=== PATIENT | male | born 1975 | race Caucasian/White ===

== ENCOUNTER 2023-04-22 08:29 | Outpatient (AMB) | payer OTHER, SELFPAY ==
--- NOTE | 2023-04-22 08:48 | AM.OFFWIN_ITS ---
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) Intake Note: pt is here for c/o right leg swelling, 4x days, denies injury states he was hunting and jumped over a log but unsure if its related Patient Tobacco Use Status: Never used Tobacco Allergies No Known Allergies Allergy (Verified 04/22/23 08:48) Do you need a note to return to daycare/school/sports/work: Yes HPI HPI Comments History of Present Illness Details 0949 This is a 48-year-old male without significant medical history presenting to the clinic for sick visit complaining of right foot pain primarily in the ball of foot, patient reports that this pain is been going on for about a week, unsure how it started he feels as though maybe it started after he jumped off of a log and or was chasing his son. He reports the ball of his right foot is more swollen than usual. Denies a/c leg swelling, numbness, tingling, fevers, chills. Has taken ibuprofen with little to no relief Physical exam discomfort with palpation of ball of right foot with some overlying swelling. No overlying skin changes. Capillary refill less than 2 seconds to bilateral lower extremity digits. No foot drop. Normal sensation distally. Able to ambulate however ambulating with a limp favoring his left foot. Concerns for inflammatory arthritis versus contusion versus fracture versus dislocation. No signs of neurovascular compromise, threat to Lujan. Other differentials include plantar facititis, sprain or strian Plan imaging will discharge with prednisone and naproxen. Will also give orthopedic consult. Educated patient on diagnosis and treatment plan, answered all question, patient verbalizes understanding. At this time patient will be discharged home, advised to return with new or worsening symptoms. Educated on worrisome signs and symptoms and when to return. At this time I feel comfortable discharge home. [facility] Social History Patient Tobacco Use Status: Never used Tobacco Review of Systems Const Details: Constitutional : No Weight loss, No Fever, No Chills, No Fatigue, No Malaise ENT/Mouth : No sore throat, No Rhinorrhea Eyes: No Eye Pain, No Swelling, No Redness Cardiovascular : No Chest Pain, No SOB, No Dyspnea on Exertion, No Orthopnea, No Edema, No Palpitations Respiratory : No Cough, No Sputum, No Wheezing Gastrointestinal : No Nausea, No Vomiting, No Diarrhea, No Constipation, No abdominal Pain, No Hematochezia, No Melena Genitourinary : No Dysuria, No Urinary Frequency, No Hematuria, Musculoskeletal : + joint pain, No Myalgias, + Joint Swelling Skin : No Skin Lesions, No rash Neuro : No Weakness, No Numbness, No Dizziness, No Headache Psych : No Anxiety/Panic, No Depression All other systems reviewed and are negative All systems reviewed & are unremarkable except as noted in HPI and below Physical Exam Vital Signs: Last Vital Signs Temp 98.1 F 04/22/23 08:55 Pulse 86 04/22/23 08:55 BP 130/88 04/22/23 08:55 Pulse Ox 99 04/22/23 08:55 BMI result Body Mass Index 31.2 vss Appearance: Alert.? Oriented X3.? No acute distress.? Head: Normocephalic, atraumatic, no step-offs or deformities Eyes: Pupils equal, round and reactive to light.? CVS: Normal heart rate and rhythm.? Pulses normal.? Respiratory: No respiratory distress.? Breath sounds normal.? Abdomen: Soft and nontender.? Skin: Skin warm and dry.? Normal skin color.? Normal skin turgor.? Extremities: No lower extremity edema.? No calf ttp. 5/5 strength to bilateral upper and lower extremities discomfort with palpation of ball of right foot with some overlying swelling. No overlying skin changes. Capillary refill less than 2 seconds to bilateral lower extremity digits. No foot drop. Normal sensation distally. Able to ambulate however ambulating with a limp favoring his left foot. Back: No midline tenderness, no C-spine tenderness, full range of motion, no CVA tenderness bilaterally Neuro: Oriented X 3.? No motor deficit.? No sensory deficit. CN 2-12 intact Assessment & Plan Assessment & Plan (1) Right foot pain: Code(s): M79.671 - Pain in right foot Plan Take your medications as prescribed. If you were prescribed antibiotics today, it is important that you take your medication to their entirety, do not skip any doses, do not finish them early. Follow-up with your primary care provider this week. Return to the emergency department with new or worsening symptoms. Such as fevers, chills, chest pain, shortness of breath, nausea, vomiting, dizziness, headache, vision changes, lethargy In case of emergency call 911 Orders: Orders XR foot RT min 3V Today M79.671 - Pain in right foot Referrals Orthopedics Referral M79.671 - Pain in right foot Medications: New prednisone 20 mg PO DAILY 5 tabs 0RF 5 days naproxen 500 mg PO BID PRN 14 tabs 0RF pain Coding Level of Care Code Est Pt Level 3 (49935) Diagnoses Right foot pain M79.671
[2023-04-22 08:55] VITALS: BP 130/88; PULSE 86; TEMP 36.7; O2SAT 99; BMI 31.2
== END 2023-04-22 10:04 | disposition home or self-care (01) ==
PROVIDERS: Visit Provider Physician Assistant
DX: M79.671 Pain in right foot (principal)
CPT/HCPCS: 99213

== ENCOUNTER 2023-04-22 09:30 | Outpatient (REF) | payer OTHER, SELFPAY ==
--- NOTE | ~2023-04-22 | XR_ITS ---
EXAMINATION: XR FOOT, RIGHT CLINICAL INFORMATION: Pain right foot COMPARISON: None available. TECHNIQUE: AP, lateral, and oblique views of the right foot. FINDINGS: There is mild hallux valgus deformity first MTP joint. Mild subchondral cystic changes are seen along the distal lateral first metatarsal. The soft tissues are normal. The ankle mortise and subtalar joints are normal. A small calcaneal heel and retrocalcaneal enthesophytes are seen. XR/XR foot RT min 3V IMPRESSION: 1. Small calcaneal heel and retrocalcaneal enthesophytes. 2. Mild hallux valgus deformity first MTP joint with subchondral cystic changes along the distal first metatarsal. 3. No visible acute fracture, dislocation or subluxation seen.
== END 2023-04-22 09:31 | disposition home or self-care (01) ==
LOC: HO.HMGCX 09:30
PROVIDERS: PCP Physician Assistant; Visit Provider Physician Assistant
DX: M79.671 Pain in right foot (principal)
CPT/HCPCS: 73630

== ENCOUNTER 2025-04-10 07:59 | Outpatient (AMB) | payer OTHER, SELFPAY ==
--- NOTE | 2025-04-10 07:59 | AM.OFFWIN_ITS ---
Intake Vital Signs 04/10/25 08:01 Height 5 ft 10.5 in Weight 193 lb BMI 27.3 BP 170/98 H Blood Pressure Location Lt brachial Position Sitting Pulse 61 Pulse Source Pulse Oximeter Temp 98.2 F Temp Source Oral Pulse Oximetry (%) 99 Oxygen Delivery Method Room Air Intake Visit Reasons: EP Rt shoulder pain Intake Note: Patient presents with right shoulder pain & numbness radiating down to right hand x2 weeks - reported to work on 04/07/25 as he was working at the time of initial injury Patient Tobacco Use Status: Never used Tobacco Allergies No Known Allergies Allergy (Verified 04/10/25 08:03) Medication List - Last Reconciled 04/10/25 by Shelia Holder MD fenofibrate micronized 134 mg PO DAILY lisinopril-hydrochlorothiazide 20-12.5 mg 1 tab PO DAILY Do you need a note to return to daycare/school/sports/work: No HPI HPI Comments History of Present Illness Details Patient was informed and verbally consented to the use of an ambient scribe for clinic note documentation during the visit. History of Present Illness The patient is a 50-year-old male presenting with right shoulder pain Right Shoulder Pain with Radiculopathy: - The pain started after using a wrench at work approximately two weeks ago. - Patient works at at [employer]. Believes he may have used a larger wrench than usual. - Patient experienced numbness in the ri ght arm after the incident and intermittent tingling in the right pinky and ring finger. - Denies neck pain, but reports pain whe n turning the neck, in the shoulder. - Describes the pain as muscular with di fficulty in defining the exact point. - Numbness in the arm has since improved - Tingling sensation worsens with certai n movements of the arm. - Tried ibuprofen without significant re lief. Essential Hypertension: - Patient is taking lisinopril-hydrochlo rothiazide combination. - Blood pressure is usually around 130/8 5 Review of Systems - Neurological: Reports tingling in the right pinky and ring finger; denies headaches or dizziness. - Cardiovascular: Denies chest pain. - Respiratory: Denies shortness of breat h. - Musculoskeletal: Reports right shoulde r pain radiating with certain movements; denies neck pain, denies weakness. Physical Exam General Appearance: Normal appearance, well developed. No acute distress Head: Normocephalic, atraumatic Pulmonary: No respiratory distress. Speaking in full sentences Musculoskeletal: No obvious deformities noted of the shoulder. No TTP of the clavicle, acromion, AC joint, or biceps tendon. Patient has full ROM. Cross body abduction, lift off test, external rotation, and abduction WNL. 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 Sensation intact distally. +2 radial pulses. Mental Status: Alert and Oriented x 3 Psychiatric: Normal mood. Normal affect. [facility] Social History Patient Tobacco Use Status: Never used Tobacco Physical Exam Vital Signs: Last Vital Signs Temp 98.2 F 04/10/25 08:01 Pulse 61 04/10/25 08:01 BP 170/98 H 04/10/25 08:01 Pulse Ox 99 04/10/25 08:01 Oxygen Delivery Method Room Air 04/10/25 08:01 BMI result Body Mass Index 27.3 Assessment & Plan Assessment & Plan (1) Right shoulder pain: Code(s): M25.511 - Pain in right shoulder Qualifiers: Chronicity: acute Qualified Code(s): M25.511 - Pain in right shoulder (2) Essential hypertension: Code(s): I10 - Essential (primary) hypertension Plan 1. Right Shoulder Pain with Radiculopathy - Assessment suggests a muscular cause with associated radiculopathy. - Discussed potential use of NSAIDS, however will avoid based on reported history of reduced kidney function and elevated blood pressures. - Prescribed a Medrol Dosepak - Advised on the use of Tylenol for additional pain relief and alternating heat therapy to relax muscles. 2. Essential Hypertension - Patient noted to have elevated blood pressures in office. Patient reports he took his home BP medication directly prior to arrival. - Patient currently asymptomatic, no headaches, dizziness, vision changes, focal weakness, or chest pain. - Confirmed continued use of lisinopril-hydrochlorothiazide combination pill. - Recommended re-evaluation of blood pressure at home - Discussed factors that could be contributing to elevated readings, including stress and dietary intake, particularly sodium. - Advised monitoring and consulting primary care if readings remain elevated. - Discussed symptoms that may require prompt evaluation. Medications: New methylprednisolone PO PER PKG DIR for 6 days 21 ea 0RF Coding Level of Care Code Est Pt Level 3 (21742) Diagnoses Acute pain of right shoulder M25.511 Chronicity: acute Essential hypertension I10
[2025-04-10 08:01] VITALS: BP 170/98; PULSE 61; TEMP 36.8; O2SAT 99; BMI 27.3
--- OUTSIDE RECORDS SUMMARY | 2025-04-10 08:03 | XMS_ITS | Clinical Summary ---
Author Organization [facility] Address [address] [facility] [address] [place] [address] Phone Care Team Providers Care Family Helper Name Role Phone Valeriano Ford MD Primary Care Provider [phone] Allergies No known active allergies Medications lisinopril (PRINIVIL,ZESTRI L) 20 MG tablet Take 20 mg by mouth daily. Active atorvastatin calcium (LIPITOR ORAL) Take by mouth. Active lisinopril-hydro CHLOROthiazide (PRINZIDE,ZESTOR ETIC) 20-12.5 mg per tablet 04/20/2019 Active fenofibrate micronized (LOFIBRA) 134 mg capsule 04/20/2019 Active naproxen (NAPROSYN) 500 MG tablet TAKE 1 TABLET BY MOUTH TWICE DAILY NEEDED FOR PAIN WITH food 04/22/2023 Active predniSONE (DELTASONE) 20 MG tablet TAKE 1 TABLET BY MOUTH ONCE DAILY FOR 5 DAYS WITH food 04/22/2023 Active fluticasone propionate (FLONASE) 50 mcg/actuation nasal spray Active Active Problems Problem Noted Date Diagnosed Date Post-nasal drip 07/15/2024 Social History Tobacco Use Types Packs/Day Years Used Date Smoking Tobacco: Never Smokeless Tobacco: Never Tobacco Cessation:Counseling Given: Not Answered Education Answer Date Recorded Are you interested in more education? Not on jaz e 10/15/2022 Are you concerned about learning? Not on file 10/15/2022 No 10/15/2022 No 10/15/2022 Digital Access Answer Date Recorded No 11/13/2022 No 11/13/2022 Reliable internet access at home? Not on file 11/13/2022 Device with a working camera? Not on file Sex and Gender Information Value Date Recorded Sex Assigned at Not on file Legal Sex Male 8:23 AM EDT Gender Identity Not on file Sexual Orientation Not on file Last Filed Vital Signs Vital Sign Reading Time Taken Comments Blood Pressure 135/93 07/15/2024 9:31 AM EST Pulse 64 07/15/2024 9:31 AM EST Temperature 36.4 C (97.6 F) 07/15/2024 9:31 AM EST Respiratory Rate 18 07/15/2024 9:31 AM EST Oxygen Saturation 99% 07/15/2024 9:31 AM EST Inhaled Oxygen Concentration - - Weight 95.3 kg (210 lb 1.6 oz) 06/25/2019 3:03 P M EST Height 176.5 cm (5' 9.49 ) 06/25/2019 3:03 PM ES T Body Mass Index 30.59 06/25/2019 3:03 PM EST Plan of Treatment Health Maintenance Due Date Last Done Comments Adult Td,Tdap Booster 1975 CREATININE LEVEL 1974 LIPID PANEL 1974 POTASSIUM LEVEL 1974 DEPRESSION SCREENING 1986 HEPATITIS C SCREENING 01/14/1992 HIV ONE-TIME SCREENING (18-6 5 YEARS) 01/14/1992 COLOGUARD 2019 COLONOSCOPY 2019 COLORECTAL CANCER SCREENING 2019 FIT TEST 2019 FOBT 2019 SIGMOIDOSCOPY 2019 VIRTUAL COLONOSCOPY 2019 PNEUMOCOCCAL VACCINES (50+ y ears) (1 of 1 - PCV) 01/14/2024 ZOSTER VACCINES (1 of 2) 01/14/2024 INFLUENZA VACCINE (#1) 2025 COVID-19 VACCINE (1 - 2024-2 6 season) 2025 RSV VACCINE (1 - 1-dose 75+ series) 2049 SMOKING STATUS SCREENING (On ce After 26 Yrs) Completed 07/13/2023 HEPATITIS A VACCINES Aged Out No long er eligible based on patient's age to complete this topic HIB VACCINES Aged Out No longer eligi ble based on patient's age to complete this topic MENINGOCOCCAL VACCINES (ACWY) Aged Out No longer eligible based on patient's age to complete this topic MENINGOCOCCAL VACCINES (B) Aged Out N o longer eligible based on patient's age to complete this topic Medical Devices Not on file Insurance CIGNA PPO CIGNA PPO CIGNA PPO CIGNA PPO CIGNA PPO CIGNA PPO CIGNA PPO Member Subscriber Plan / Payer (Ef fective 2014-Present) Name:Damine Dutton Relation to Subscriber:Spouse Name:ALICE DUTTON Date of :1977 Address: [address] [place] [id number] Payer ID:[id number] (NAIC) Type:PPO Address: [address] [place] [id number] CIGNA PPO CIGNA PPO Care Teams Family Helper Relationship Specialty Start Date End Date Valeriano Ford MD [address] [place] [id number] PCP - General Internal Medicine 03/21/19 Additional Source Comments The information contained in this document represents components of the legal health record. It is not the complete legal health record.[facility]
--- OUTSIDE RECORDS SUMMARY | 2025-04-10 08:03 | XMS_ITS | Data Portability ---
Author Organization [place] - [facility], Allergy Address [address] [place] [phone] Care Team Providers Care Chief Digital Officer Name Role Phone AMINA ROMEO Primary Care Provider Assessment No assessment recorded. Plan of Treatment Reminders Order Date Submit Date Provider Last Modified By Organization Details Last Modified Time Details Appointments None recorded. Lab None recorded. Referral None recorded. Procedures None recorded. Surgeries None recorded. Imaging MRI, brain + internal auditory canal, w/wo contrast - MRI, BRAIN + INTERNAL AUDITORY CANAL, W/WO CONTRAST 2023 024 [facility] ([facility]), [address] [facility], [place], [address], 17:44:03 Medication Orders None recorded. Patient TargetsNo targets recorded. Patient InstructionsNo instructions recorded. Reason for Referral None Reported. Results Created Date Observation Date Name Description Value Unit Range Abnormal Flag Note LastModifiedBy Organization Detail LastModifiedTime 05/03/2002/28/2024 audio gram No observ ation record ed. [email or web address] Not Available 2023 11:36:21 05/03/20 audio gram No observ ation record ed. BARCODE Not Available 2023 16:33:50 05/15/20 24 05/12/2024 MRI, brain + brain stem, w/wo contr ast [facility] Access ion Number : [id number] Hieu jimenez Name: Damien Morelanda katey Record Number : [id number] Date of : 1974 Date of Exam: 2023 Referr ing Physic guy: Eppste iner, Kye [facility] [place] [address] [facility] [place] [address] Exam: MR Brain (C-/C+ ) CPT 74180 [facility] Brain (C-/C+ ) CPT 57196 INDICA TION / CLINIC AL QUESTI ON: - Snsrnr l hear loss, uni, left ear, w unrest r hear cntra side, Clinic al Indica tion: Asymme tric sensor ineura l hearin g loss TECHNI QUE: Multip lanar, multis equenc e MRI of the brain was perfor med with and withou t intrav enous contra st. 17 mL Dotare m intrav enous contra st was admini stered . COMPAR IVANIA: None. FINDIN GS: IAC: There is no mass or abnorm al enhanc ement in the university intern al audito ry canals or cerebe llopon lynne angles . Course and calibe r of the 7th and 8th crania l nerves is normal bilate rally. Fluid signal is preser michael in the inner ear struct ures bilate rally. Brains tem demons trates normal signal . BRAIN and EXTRA- AXIAL SPACES : No signif icant abnorm ality of the visual ized portio ns of the brain and extra- axial spaces . EXTRAC RANIAL SOFT TISSUE S: There is mild scatte red mucosa l thicke mo scatte red throug hout the parana ebony sinuse s, as well as a retent ion cysts larges t in the right maxill nevin sinus. No fluid levels are seen. Trace mastoi d effusi ons are presen t bilate rally, inferi jannie and medial ly. Nasoph arynge al contou r is symmet jase. Visual ized portio ns of the extrac ranial soft tissue s are otherw ise unrema rkable . BONES: Visual ized marrow signal is preser michael. IMPRES JEAN PAUL: No retroc ochlea r abnorm ality to explai n the patien t?s sympto ms. Electr onical ly Signed By: Mamadou griffith [facility] ([facility]) [address], [place], [address], 05/22/2024 15:56:56 Result Notes Documentation Provider Name and Address Organization Details Recorded Time Mri, Brain + Brain Stem, W/wo Contrast : [facility] Accession Number: [id number] Patient Name: Damien Moreland Date of : 1975 Date of Exam: 05-12-2024 Referring Physician: Kye Giles [facility] [address] [address] Exam: MR Brain (C-/C+) CPT 96134 Room Description: [facility] 3.0T MR Brain (C-/C+) CPT 17492 INDICATION / CLINICAL QUESTION: - Snsrnrl hear loss, uni, left ear, w unrestr hear cntra side, Clinical Indication: Asymmetric sensorineural hearing loss TECHNIQUE: Multiplanar, multisequence MRI of the brain was performed with and without intravenous contrast. 17 mL Dotarem intravenous contrast was administered. COMPARISON: None. FINDINGS: IAC: There is no mass or abnormal enhancement in the internal auditory canals or cerebellopontine angles. Course and caliber of the 7th and 8th cranial nerves is normal bilaterally. Fluid signal is preserved in the inner ear structures bilaterally. Brainstem demonstrates normal signal. BRAIN and EXTRA-AXIAL SPACES: No significant abnormality of the visualized portions of the brain and extra-axial spaces. EXTRACRANIAL SOFT TISSUES: There is mild scattered mucosal thickening scattered throughout the paranasal sinuses, as well as a retention cysts largest in the right maxillary sinus. No fluid levels are seen. Trace mastoid effusions are present bilaterally, inferiorly and medially. Nasopharyngeal contour is symmetric. Visualized portions of the extracranial soft tissues are otherwise unremarkable. BONES: Visualized marrow signal is preserved. IMPRESSION: No retrocochlear abnormality to explain the patient?s symptoms. Electronically Signed By: Jennifer ramirez [place] - [facility] 05/22/2024 15:56:56 Problems Name Problem SNOMED Code Status Onset Date Resolution Date Notes Provider Name and Address Organization Details Recorded Time Bilateral tinnitus 6637608208105 Active 2023 EMEKA EDUARDO, [facility] [address], [phone] [place] [address] - [facility] 09:02:33 Sensorineur al hearing loss in left ear 9927973364152 9 Active 2023 EMEKA EDUARDO, AUD [address] [facility], [place], [phone], [facility] 09:07:19 Problem Notes None recorded. Procedures Surgical History Date Name Laterality Status Provider Name and Address Organization Details Recorded Time 05/03/2024 Comp Audio with Tymps - 56499 & [id number] completed EMEKA EDUARDO, AUD [address] [facility] [address], [place], [address], [facility] 05/03/2024 09:02:21 Imaging Results None recorded. Procedure Notes None recorded. Medical Equipment None Reported. Medications Name Sig Start Date Stop Date Status Note LastModified by Organization Details LastModified Time lisinopril 20 mg-hydrochloro thiazide 12.5 mg tablet active Not Available Not Available No t Available fenofibrate micronized 134 mg capsule active Not Available Not Available N ot Available fluticasone propionate 50 mcg/actuation nasal spray,suspensi on active Not Available Not Available Not Available Vitals Date Recorded Body height Body mass index (BMI) Body weight Provider Name and Address Organization Details Last Updated DateTime 05/03/2024 177.8 cm 26.5 kg/m2 69917.59 g Sunshine French [facility] 05/03/2024 09:15:20 Social History None recorded. Functional Status None recorded. Mental Status None recorded. Family History Nothing Reported. Medical History No medical history recorded. Past Encounters Encounter ID Performer Location Encounter Start Date Encounter Closed Date Diagnosis/Indication Diagnosis SNOMED-CT Code Diagnosis ICD10 Code Diagnosis IMO Codes Diagnosis Note [id number] KYE GILES MD [facility] on [address] [place] [address] 05/03/2024 08:43:21 05/03/2024 09:39:57 Bilateral tinnitus 8744928442 102 H93.13 Right Ear:Normal hearing with excellent speech discrimina tion.Type A tympanogra m.Left Ear:Normal hearing through 3K Hz sloping to a mild SNHL at 4K Hz rising to normal with excellent speech discrimina tion.Type A tympanogra m. Ear exam was normal. Audiogram was reviewed. We discussed the associatio n between sensorineu ral hearing loss and tinnitus. We discussed masking for tinnitus. Sensorineu ral hearing loss in left ear [id number] 9109 H90.42 likely due to noise exposure. Given the asymmetric hearing loss I recommend an MRI IAC with contrast to evaluate for retrocochl ear pathology. We will review results when complete. Will share results via portal. Health Concerns Section Related Observation LastModified by Organization Detai ls LastModified Time None Recorded Concern Status LastModified by Organization Details LastModified Time None Recorded Advance Directives Directive None Recorded Payers Insurance Date Sequence Insurance Name Policy Number Policy Ashley Covered Member ID Ashley Member ID Guarantor Name 05/03/2024 1 CHRISTOPHERJORGE [id number] Malaika [facility] [id number] 2 Damien [facility] Notes Date Note Type Note Provider Name and Address Organization Details Recorded Time 05/03/2024 text/html ROS as noted in the HPI He has tinnitus. It's a high pitched hissing. He's had if for a year. He had an audio at work that showed HF SNHL. Audio today showed HF SNHL AU at 4K Hz worse . 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 He wears hearing protection when he shoots firearms. No new meds or head trauma. KYE GILES MD [address] [place] [address], [phone], [facility] - [facility] 05/03/2024 09:36:01
--- OUTSIDE RECORDS SUMMARY | 2025-04-10 08:03 | XMS_ITS ---
Author Name [facility] Organization Unknown Care Team Organization Name Specialty Phone Email Start Date End Da te [facility] 04/27/2022 02/06/2024
== END 2025-04-10 08:53 | disposition home or self-care (01) ==
PROVIDERS: PCP Physician Assistant; Visit Provider Family Medicine
DX: M25.511 Pain in right shoulder (principal); I10 Essential (primary) hypertension
CPT/HCPCS: 99213

== ENCOUNTER → 2025-04-10 07:59 | Outpatient (BNVA) | payer OTHER, SELFPAY | PROVIDERS: PCP Physician Assistant; Visit Provider Family Medicine | DX: M25.511 Pain in right shoulder (principal); I10 Essential (primary) hypertension | CPT/HCPCS: 99212 ==